=== PATIENT | female | born 1975 | race Caucasian/White ===

== ENCOUNTER 2021-06-11 21:55 | Emergency (ER) | payer MEDICAID ==
[~2021-06-11] VITALS: Ht 152.4 cm; Wt 95.0 kg
[2021-06-11 22:48] LABS: BASOPHILS % 0.7 % (0.0-2.0); EOSINOPHILS % 4.4 % (0.0-5.0); HEMATOCRIT. 37.7 % (36.0-48.0); HEMOGLOBIN. 12.9 g/dL (12.0-16.0); LYMPHOCYTES % 34.8 % (20.0-50.0); MEAN CORPUSCULAR HEMOGLOBIN 29.2 pg (28.0-32.0); MEAN CORPUSCULAR VOLUME 85.6 fL (81.0-99.0); MEAN PLATELET VOLUME 7.7 fl (7.4-10.4); MONOCYTES % 7.1 % (2.0-8.0); PLATELET 306 x1000/uL (130-400); RED BLOOD CELL COUNT 4.41 mill/uL (4.2-5.4); RED CELL DISTRIBUTION WIDTH 14.4 % (11.6-14.6)
[2021-06-11 22:53] LABS: CHLORIDE 103 mEq/L (98-107)
[2021-06-11 22:58] LABS: HCG SCREEN NEGATIVE
[2021-06-12] MEDS ORDERED: LORAZEPAM 0.5MG TABLET PO ONE (00:15)
[2021-06-12 02:40] VITALS: BP 152/87
== END 2021-06-12 02:58 | disposition home or self-care (01) ==
LOC: ER 21:55
DX: F41.9 Anxiety disorder, unspecified (principal); I10 Essential (primary) hypertension
CPT/HCPCS: 36415; 80048; 82962; 84703; 85025; 99283